=== PATIENT | female | born 1970 | race Caucasian/White ===

== ENCOUNTER 2020-10-27 15:59 | Emergency (ER) | payer OTHER ==
[2020-10-27 20:41] LABS: HEMOGLOBIN 14.6 gm/dl (12.3-15.3); RED BLOOD COUNT 5.19 M/UL (4.00-5.10); WHITE BLOOD COUNT 7.2 K/UL (4.5-11.0)
[2020-10-27 21:04] LABS: BUN/CREATININE RATIO 13 (0-10)
[2020-10-27] MEDS ORDERED: CYCLOBENZAPRINE10 MG PO (23:47)
[2020-10-28] MEDS ORDERED: HYDROCODON-ACE1 EAC4 PO (00:10)
[2020-10-28] MEDS ORDERED: OMNICEF 300 MG300 MG PO (00:20)
== END 2020-10-28 00:25 | disposition home or self-care (01) ==
LOC: ER1 15:59
PROVIDERS: Nurse Practitioner
DX: S32.018A Other fracture of first lumbar vertebra, initial encounter for closed fracture (principal); S60.222A Contusion of left hand, initial encounter; S70.12XA Contusion of left thigh, initial encounter; R07.81 Pleurodynia; N39.0 Urinary tract infection, site not specified; R10.12 Left upper quadrant pain; R10.11 Right upper quadrant pain; M54.6 Pain in thoracic spine; I10 Essential (primary) hypertension; E11.9 Type 2 diabetes mellitus without complications; M19.90 Unspecified osteoarthritis, unspecified site; V48.6XXA Car passenger injured in noncollision transport accident in traffic accident, initial encounter; Y92.828 Other wilderness area as the place of occurrence of the external cause; Z79.899 Other long term (current) drug therapy; Z88.8 Allergy status to other drugs, medicaments and biological substances; Z79.891 Long term (current) use of opiate analgesic
CPT/HCPCS: 71260; 72128; 72131; 80053; 81001; 82550; 82553; 83605; 83690; 83874; 84484; 85025; 85610; 85730; 86850; 86900; 86901; 93005; 96374; 96375; 96376; 99284; J2270; J2405; J7030; Q9967

== ENCOUNTER → 2020-12-06 | Outpatient (CLI) | payer OTHER ==
[~2020-12-06] MED LIST: CLONAZEPAM0.5 M1 PO; CYCLOBENZAPRINE10 MG PO; DOCUSATE SODIU100 MG PO; ELIQUIS 2.5 MG2.5 MG PO; HYDROCHLOROTHIA25 MG PO; HYDROCODON-ACE1 EAC2 PO; HYDROCODON-ACE1 EAC4 PO; KLONOPIN0.5 MG PO; LYRICA150 MG PO; OMEPRAZOLE20 MG PO; OMNICEF 300 MG300 MG PO; PROPRANOLOL HCL20 MG PO; ULTRAM50 MG PO; VITAMIN D PO; VOLTAREN ARTHRI20 GM TD
[2020-12-06 10:44] LABS: RED BLOOD COUNT 4.63 M/UL (4.00-5.10)
[2020-12-06 11:12] LABS: BUN/CREATININE RATIO 15 (0-10)
== END ==
LOC: OPSV2 09:30
PROVIDERS: Orthopaedic Surgery
DX: Z01.818 Encounter for other preprocedural examination (principal); S32.018A Other fracture of first lumbar vertebra, initial encounter for closed fracture; X58.XXXA Exposure to other specified factors, initial encounter
CPT/HCPCS: 71046; 80048; 85025

== ENCOUNTER → 2021-01-08 | Outpatient (CLI) | payer OTHER ==
[2021-01-08 11:38] LABS: HEMOGLOBIN 13.9 gm/dl (12.3-15.3); RED BLOOD COUNT 4.9 M/UL (4.00-5.10); WHITE BLOOD COUNT 6.1 K/UL (4.5-11.0)
[2021-01-08 11:56] LABS: BUN/CREATININE RATIO 22 (0-10)
== END ==
LOC: OPSV2 10:00 → EDSTATUS 10:00 → OPSV2 10:35
PROVIDERS: Orthopaedic Surgery
DX: Z01.818 Encounter for other preprocedural examination (principal); M17.12 Unilateral primary osteoarthritis, left knee; E11.9 Type 2 diabetes mellitus without complications; R94.31 Abnormal electrocardiogram [ECG] [EKG]
CPT/HCPCS: 36415; 80048; 81001; 83036; 85027; 87081; 87086; 93005

== ENCOUNTER → 2021-01-20 | Outpatient (CLI) | payer OTHER ==
[2021-01-20 14:44] LABS: BUN/CREATININE RATIO 15 (0-10)
== END ==
LOC: LAB 13:55
PROVIDERS: Family Medicine
DX: Z53.8 Procedure and treatment not carried out for other reasons (principal)
CPT/HCPCS: 36415; 80048; 86850; 86900; 86901

== ENCOUNTER 2021-01-21 06:28 | Day surgery (SDC) | payer OTHER ==
[~2021-01-21] VITALS: Ht 154.9 cm; Wt 97.1 kg
[~2021-01-21 06:28] MED LIST changes: -CLONAZEPAM0.5 M1 PO; -DOCUSATE SODIU100 MG PO; -ELIQUIS 2.5 MG2.5 MG PO; -HYDROCHLOROTHIA25 MG PO; -HYDROCODON-ACE1 EAC2 PO; -KLONOPIN0.5 MG PO; -LYRICA150 MG PO; -OMEPRAZOLE20 MG PO; -PROPRANOLOL HCL20 MG PO; -ULTRAM50 MG PO; -VITAMIN D PO; -VOLTAREN ARTHRI20 GM TD
[2021-01-21] MEDS ORDERED: PROPRANOLOL HCL20 MG PO (07:10)
[2021-01-21] MEDS ORDERED: LYRICA150 MG PO (07:11)
[2021-01-21] MEDS ORDERED: OMEPRAZOLE20 MG PO (07:11)
[2021-01-21] MEDS ORDERED: ULTRAM50 MG PO (07:12)
[2021-01-21] MEDS ORDERED: VITAMIN D PO (07:12)
[2021-01-21] MEDS ORDERED: CLONAZEPAM0.5 M1 PO (07:13)
[2021-01-21] MEDS ORDERED: KLONOPIN0.5 MG PO (07:13)
[2021-01-21] MEDS ORDERED: VOLTAREN ARTHRI20 GM TD (07:14)
[2021-01-21] MEDS ORDERED: DOCUSATE SODIU100 MG PO (07:14)
[2021-01-21] MEDS ORDERED: HYDROCHLOROTHIA25 MG PO (07:14)
[2021-01-21] MEDS ORDERED: HYDROCODON-ACE1 EAC2 PO (10:47)
[2021-01-22 02:49] LABS: HEMOGLOBIN 11.2 gm/dl (12.3-15.3); RED BLOOD COUNT 4.09 M/UL (4.00-5.10); WHITE BLOOD COUNT 12.2 K/UL (4.5-11.0)
[2021-01-22 03:01] LABS: BUN/CREATININE RATIO 15 (0-10)
[2021-01-22] MEDS ORDERED: ELIQUIS 2.5 MG2.5 MG PO ×2 (09:15→09:24)
== END 2021-01-22 16:36 | disposition home health service (06) ==
LOC: OR 06:28 → ZOBSOF 06:28 → EDSTATUS 07:45 → M/S 13:34 → ZOBSOF 13:34 → M/S 13:34 → OR 01-22 16:36
PROVIDERS: Orthopaedic Surgery
PROC: 3E0T3BZ Introduction of Anesthetic Agent into Peripheral Nerves and Plexi, Percutaneous Approach (ICD-10-PCS; principal; 2021-01-21 07:45)
PROC: 0SRD0J9 Replacement of Left Knee Joint with Synthetic Substitute, Cemented, Open Approach (ICD-10-PCS; principal; 2021-01-21 07:45)
DX: M17.0 Bilateral primary osteoarthritis of knee (principal); G89.18 Other acute postprocedural pain; I10 Essential (primary) hypertension; I25.10 Atherosclerotic heart disease of native coronary artery without angina pectoris; K21.9 Gastro-esophageal reflux disease without esophagitis; E11.9 Type 2 diabetes mellitus without complications; E66.9 Obesity, unspecified; Z68.41 Body mass index [BMI] 40.0-44.9, adult; Z20.822 Contact with and (suspected) exposure to COVID-19; Z88.8 Allergy status to other drugs, medicaments and biological substances; Z79.891 Long term (current) use of opiate analgesic; Z79.899 Other long term (current) drug therapy
CPT/HCPCS: 36415; 71045; 73560; 80048; 82962; 85025; 86850; 86900; 86901; 97110; 97116-GP-CQ; 97162; 97166; 97530-GP-CQ; 97535; C1776; J0171; J0690; J1100; J1170; J2001; J2250; J2405; J2704; J2795; J3010; J3370; J7120

== ENCOUNTER 2021-01-29 17:48 | Emergency (ER) | payer OTHER ==
[~2021-01-29 17:48] MED LIST changes: +CLONAZEPAM0.5 M1 PO; +DOCUSATE SODIU100 MG PO; +ELIQUIS 2.5 MG2.5 MG PO; +HYDROCHLOROTHIA25 MG PO; +HYDROCODON-ACE1 EAC2 PO; +KLONOPIN0.5 MG PO; +LYRICA150 MG PO; +OMEPRAZOLE20 MG PO; +PROPRANOLOL HCL20 MG PO; +ULTRAM50 MG PO; +VITAMIN D PO; +VOLTAREN ARTHRI20 GM TD
[2021-01-29 20:05] LABS: RED BLOOD COUNT 4.44 M/UL (4.00-5.10)
[2021-01-29 20:45] LABS: BUN/CREATININE RATIO 20 (0-10)
== END 2021-01-29 22:12 | disposition home or self-care (01) ==
LOC: ER1 17:48
PROVIDERS: Family Medicine
DX: K62.5 Hemorrhage of anus and rectum (principal); K64.9 Unspecified hemorrhoids; Z79.01 Long term (current) use of anticoagulants
CPT/HCPCS: 80053; 82272; 85025; 99283